=== PATIENT | male | born 1965 | race Caucasian/White ===

== ENCOUNTER 2018-04-22 23:20 | Emergency (ER) | payer MEDICAID ==
[~2018-04-22] VITALS: Ht 162.6 cm; Wt 54.4 kg
[~2018-04-22 23:20] MED LIST: ALBU0.084 NEB; ALBUAER3 IN; RABE20TA5 PO; SIME180C13 PO; SIME80CH11 PO
[2018-04-22 23:37] VITALS: BP 117/82
== END 2018-04-23 06:00 | disposition left against medical advice (07) ==
LOC: EDBD 23:20 → ER 23:28
DX: R10.9 Unspecified abdominal pain (principal); Z53.21 Procedure and treatment not carried out due to patient leaving prior to being seen by health care provider
CPT/HCPCS: 74176

== ENCOUNTER 2018-11-29 22:02 | Emergency (ER) | payer MEDICAID ==
[~2018-11-29] VITALS: Ht 175.3 cm; Wt 52.2 kg
[2018-11-30] MEDS ORDERED: ALBUTEROL SULF 2.5 MG/0.5ML(0.5%) NEB SOLN NEB ONE (02:30)
[2018-11-30] MEDS ORDERED: methylPREDNISolone SOD SUCC 125 MG/2 ML VL IV ONE (02:30)
[2018-11-30] MEDS ORDERED: IPRATROPIUM BROM 0.5 MG/2.5ML INH SOL NEB ONE (02:30)
[2018-11-30] MEDS ORDERED: cefTRIAXone 1GM/50ML D5W 50 ML IV ONE (02:30)
[2018-11-30 02:59] VITALS: BP 112/64
== END 2018-11-30 04:14 | disposition left against medical advice (07) ==
LOC: EDBD 22:02 → ER 22:02
DX: J44.1 Chronic obstructive pulmonary disease with (acute) exacerbation (principal); J18.9 Pneumonia, unspecified organism; K21.9 Gastro-esophageal reflux disease without esophagitis
CPT/HCPCS: 71045; 93005; 94640; 99283; J7611; J7644